=== PATIENT | male | born 1965 | race Caucasian/White ===

== ENCOUNTER 2020-03-04 10:56 | Emergency (ER) | payer OTHER, SELFPAY ==
--- NOTE | ~2020-03-04 | XR_ITS ---
EXAMINATION: [id number] INDICATION: Left-sided rib pain TECHNIQUE: PA view of the chest and 3 views of the left ribs were obtained. COMPARISON: 02/02/2018 FINDINGS: The lungs are free of acute opacities. There is no pneumothorax. The cardiomediastinal silh ouette is normal. No displaced rib fracture is identified. IMPRESSION: 1. No acute cardiopulmonary abnormality or evidence of displaced rib fracture. Reviewed, dictated and finalized at location A.
[2020-03-04 11:09] VITALS: BP 136/100; PULSE 80; RESP 20; TEMP 36.8; O2SAT 100
--- NOTE | 2020-03-04 11:51 | ED.GENADULT ---
HPI - General Adult General Chief complaint: Chest Pain Stated complaint: pain in left side Time Seen by Provider: 03/04/20 11:51 Source: patient and RN notes reviewed Mode of arrival: ambulatory Limitations: no limitations History of Present Illness HPI narrative: 54-year-old male who presents to [facility] care with complaints of pain to the left lateral rib area after coughing hard twice last evening and heard pop in left rib area..Patient denies any shortness of breath, no radiation of pain to jaw or down arm, no nausea, vomiting or diaphoresis, describes pain as 3/10 and is reproduced on palpation of left lateral chest area. 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 Patient os right hand dominant MD complaint: left rib pain Onset (ago): day(s) (1) Location: chest, left and upper extremity (elbow for 2 months) Severity: mild Severity scale (1-10): 3 Quality: aching Pain Consistency: intermittent Relieving factors: rest Exacerbating factors: movement and other (cough, deep inspiration) Associated symptoms: denies other symptoms Treatments prior to arrival: splint (band to elbow area) Related Data Home Medications Medication Instructions Recorded Confirmed lisinopril-hydrochlorothiazide 1 tablet PO DAILY 03/04/20 03/04/20 Allergies Allergy/AdvReac Type Severity Reaction Status Date / Time No Known Allergies Allergy Verified 03/04/20 11:29 Review of Systems Review of Systems: Narrative: CONSTITUTIONAL: Denies fever, chills, or sweats. EYES: Denies visual changes, redness, or discharge. ENT: Denies rhinorrhea, congestion, sore throat, or otalgia. CARDIOVASCULAR: positive for left lateral chest pain, no palpitations, or edema. RESPIRATORY: positive for occasional cough denies dyspnea. GASTROINTESTINAL: Denies abdominal pain, nausea, vomiting, or diarrhea. GENITOURINARY: Denies dysuria or hematuria. SKIN: Denies rash or itching. MUSCULOSKELETAL: Denies back pain,positive left elbow joint pain, or myalgia, some intermittent tingling and numbness left index and 3rd finger NEUROLOGIC: Denies headache, numbness, or weakness. PSYCHIATRIC: Denies anxiety or depression. All systems reviewed & are unremarkable except as noted in HPI and below PMFSH Past Medical History Medical History (Updated 03/06/20 @ 20:31 by Halima Flaherty NP) Hypertension Social History Social History (Updated 03/06/20 @ 20:32 by Halima Flaherty NP) Smoking status: Never smoker Alcohol intake: current Alcohol use details: rare Substance use: never Living arrangements: with family Gender identity (if verbalized by the patient): Male Comments At time of signature, agree with nursing past medical, surgical, social and family history. There is no relevant family history pertinent to the presenting complaint Exam Narrative: Exam Narrative: GENERAL: Well-appearing, well-nourished, and in no acute distress. HEAD: Normocephalic, atraumatic. EYES: PERRLA and EOMI. ENT: Nares clear, no rhinorrhea or epistaxis. Mucous membranes moist.TM's normal with good light reflex, throat pink with no exudates or lesions no tonsil enlargement NECK: Supple.no lymphadenopathy CHEST: Clear to auscultation. No respiratory distress.SAO2 100% on room air HEART: Regular rate and rhythm. No murmur heard. Normal peripheral pulses.Palpable tenderness to left lateral chest increases with cough, some movement and deep inspiration. No dyspnea, radiation of pain, nausea or diaphoresis. ABDOMEN: Soft, nontender, nondistended, normal active bowel sounds. EXTREMITIES: Normal range of motion. No edema.palpable tenderness to anterior aspect of left olecranal process, strong left radial pulse with nail beds blanching b
== END 2020-03-04 12:30 | disposition home or self-care (01) ==
PROVIDERS: Emergency Provider Registered Nurse
DX: S29.011A Strain of muscle and tendon of front wall of thorax, initial encounter (principal); X58.XXXA Exposure to other specified factors, initial encounter; M77.9 Enthesopathy, unspecified; I10 Essential (primary) hypertension
CPT/HCPCS: 71101; 99213; G0463